=== PATIENT | female | born 1950 | race Caucasian/White ===

== ENCOUNTER 2022-04-20 14:59 | Emergency (ER) | payer MEDICARE, OTHER ==
[~2022-04-20] VITALS: Ht 165 cm; Wt 72.5 kg
[2022-04-20] MEDS ORDERED: LEVO88TA68 (15:13)
[2022-04-20 15:43] LABS: BASOPHILS % (AUTO) 0 % (0-10); EOSINOPHILS % (AUTO) 0 % (0-10); HEMATOCRIT 45 % (35-52); HEMOGLOBIN 14.8 g/dL (11.5-16.0); LYMPHOCYTES # (AUTO) 2.7 10^3/uL (1.0-4.0); LYMPHOCYTES % (AUTO) 35 % (12-44); MEAN CORPUSCULAR HEMOGLOBIN 33 pg (25-34); MEAN CORPUSCULAR HGB CONC 33 g/dL (32-36); MEAN CORPUSCULAR VOLUME 98 fL (80-99); MEAN PLATELET VOLUME 10.3 fL (9.0-12.2); MONOCYTES # (AUTO) 0.5 10^3/uL (0.0-1.0); MONOCYTES % (AUTO) 7 % (0-12); NEUTROPHILS # (AUTO) 4.4 10^3/uL (1.8-7.8); NEUTROPHILS % (AUTO) 57 % (42-75); PLATELET COUNT 303 10^3/uL (130-400); WHITE BLOOD COUNT 7.7 10^3/uL (4.3-11.0)
[2022-04-20 15:48] LABS: ALBUMIN 4.5 GM/DL (3.2-4.5); CHLORIDE 104 MMOL/L (98-107); POTASSIUM 3.3 MMOL/L (3.6-5.0); SODIUM 140 MMOL/L (135-145)
[2022-04-20 15:49] LABS: CALCIUM 9.9 MG/DL (8.5-10.1)
[2022-04-20 15:50] LABS: GLUCOSE 137 MG/DL (70-105); TOTAL PROTEIN 7.9 GM/DL (6.4-8.2)
[2022-04-20 15:51] LABS: CARBON DIOXIDE 21 MMOL/L (21-32)
[2022-04-20 15:52] LABS: BILIRUBIN,TOTAL 0.4 MG/DL (0.1-1.0)
--- NOTE | 2022-04-20 15:52 | ED General ---
General Chief Complaint: Cardiac/General Problems Stated Complaint: IRR HEART RATE Nursing Triage Note: PT PRESENTS TO ED VIA POV FROM HOME WITH COMPLAINTS OF PALPITATIONS X 2-3 WEEKS BUT REPORTS ITS WORSE TODAY. PT ALSO REPROTS SOA AND DIZZINESS. Source of Information: Patient Exam Limitations: No Limitations (SUAD DELAROSA MED STUDENT) History of Present Illness Date Seen by Provider: Apr 20, 2022 Time Seen by Provider: 15:39 Initial Comments Gladys Card is a 71 yo female who presents for heart palpitations. Pt has hx of Graves disease with thyroidectomy. Pt reports she has been experiencing heart palpitations for greater than one month. She states today in jewish she had palpitations, became dizzy and felt like she was going to pass out, so she came in to the ER. She reports rest normally helps with the palpitations, but this did not help today. She has associated cough and SOA. She denies CP, dysuria, N/V/D, headache, URI sxs or increased LE edema. She follows up for regular thyroid checks at [facility] and states the last one was within normal limits. She is well managed on 88mcg of levothyroxine. She reports no cardiac hx. She did have a stress test in 2007 at [facility] d/t increased stress while taking care of her sick mother. Her mother had hx of PVCs and sick sinus syndrome. Pt reports no hx of HTN and states her blood pressures are usually 140s/70s and heart rate around 70. Timing/Duration: Other (1 month) Associated Systoms: No Chest Pain; Cough; No Nausea/Vomiting; Shortness of Air (SUAD DELAROSA A MED STUDENT) Allergies and Home Medications Allergies Coded Allergies: No Known Drug Allergies (Unverified , 04/20/22) Patient Home Medication List Levothyroxine Sodium (Euthyrox) 88 Mcg Tablet, (Reported) Entered as Reported by: SHE CASANOVA on 04/20/22 2083 Last Action: New Order Review of Systems Review of Systems Constitutional: No chills, No fever EENTM: No blurred vision, No vision loss Respiratory: cough, short of breath Cardiovascular: No chest pain; palpitations Gastrointestinal: No abdominal pain, No constipation, No diarrhea, No nausea, No vomiting Genitourinary: No dysuria, No frequency Musculoskeletal: No back pain Skin: no symptoms reported Psychiatric/Neurological: No Symptoms Reported Hematologic/Lymphatic: No Symptoms Reported Immunological/Allergic: no symptoms reported (SUAD DELAROSA [employer] STUDENT) Past Vznpari-Qiutzd-Ijmzhw Hx Patient Social History Tobacco Use?: No Substance use?: No Alcohol Use?: No Pt feels they are or have been: No (SUAD DELAROSA) Past Medical History Surgery/Hospitalization HX: SX: THYROID ABLATION, L BREAST DUCT REMOVED. L KNEE, APPY PMH: HYPOTHYROIDISM (SAUD DELAROSA) Physical Exam Vital Signs Vital Signs - First Documented 04/20/22 15:04 Temp 37.6 Pulse 108 Resp 24 B/P (MAP) 187/80 (115) Pulse Ox 99 (AKIRA STANFORD MD) Vital Signs Capillary Refill : Less Than 3 Seconds (SUAD DELAROSA) Height, Weight, BMI Height: '" Weight: lbs. oz. kg; 26.00 BMI Method: (SUAD DELAROSA) Progress/Results/Core Measures Suspected Sepsis SIRS Temperature: Pulse: 108 Respiratory Rate: 24 Laboratory Tests 04/20/22 15:10: White Blood Count 7.7 Blood Pressure 187 /80 Mean: 115 Laboratory Tests 04/20/22 15:10: Creatinine 1.06, Platelet Count 303, Total Bilirubin 0.4 (SUAD DELAROSA STUDENT) Results/Orders Lab Results Laboratory Tests Test 04/20/22 15:10 Range/Units White Blood Count 7.7 4.3-11.0 10^3/uL Red Blood Count 4.55 3.80-5.11 10^6/uL Hemoglobin 14.8 11.5-16.0 g/dL Hematocrit 45 35-52 % Mean Corpuscular Volume 98 80-99 fL Mean Corpuscular Hemoglobin 33 25-34 pg Mean Corpuscular Hemoglobin Concent 33 32-36 g/dL Red Cell Distribution Width 13.0 10.0-14.5 % Platelet Count 303 130-400 10^3/uL Mean Platelet Volume 10.3 9.0-12.2 fL Immature Granulocyte % (Auto) 0 % Neutrophils (%) (Auto) 57 42-75 % Lymphocytes (%) (Auto) 35 12-44 % Monocytes (%) (Auto) 7 0-12 % Eosinophils (%) (Auto) 0 0-10 % Basophils (%) (Auto) 0 0-10 % Neutrophils # (Auto) 4.4 1.8-7.8 10^3/uL Lymphocytes # (Auto) 2.7 1.0-4.0 10^3/uL Monocytes # (Auto) 0.5 0.0-1.0 10^3/uL Eosinophils # (Auto) 0.0 0.0-0.3 10^3/uL Basophils # (Auto) 0.0 0.0-0.1 10^3/uL Immature Granulocyte # (Auto) 0.0 0.0-0.1 10^3/uL Sodium Level 140 135-145 MMOL/L Potassium Level 3.3 L 3.6-5.0 MMOL/L Chloride Level 104 98-107 MMOL/L Carbon Dioxide Level 21 21-32 MMOL/L Anion Gap 15 H 5-14 MMOL/L Blood Urea Nitrogen 14 7-18 MG/DL Creatinine 1.06 0.60-1.30 MG/DL Estimat Glomerular Filtration Rate 56 BUN/Creatinine Ratio 13 Glucose Level 137 H 70-105 MG/DL Calcium Level 9.9 8.5-10.1 MG/DL Corrected Calcium 9.5 8.5-10.1 MG/DL Magnesium Level 2.1 1.6-2.4 MG/DL Total Bilirubin 0.4 0.1-1.0 MG/DL Aspartate Amino Transf (AST/SGOT) 19 5-34 U/L Alanine Aminotransferase (ALT/SGPT) 15 0-55 U/L Alkaline Phosphatase 92 40-136 U/L Troponin I < 0.028 <0.028 NG/ML B-Type Natriuretic Peptide 23.4 <100.0 PG/ML Total Protein 7.9 6.4-8.2 GM/DL Albumin 4.5 3.2-4.5 GM/DL (AKIRA STANFORD MD) My Orders Orders - AKIRA STANFORD MD Ekg Tracing (04/20/22 15:03) Ed Iv/Invasive Line Start (04/20/22 15:16) Cbc With Automated Diff (04/20/22 15:16) Comprehensive Metabolic Panel (04/20/22 15:16) Magnesium (04/20/22 15:16) Chest 1 View, Ap/Pa Only (04/20/22 15:16) Troponin I Ralls (04/20/22 15:37) Bnp Sandeep (04/20/22 15:37) Ns Iv 1000 Ml (Sodium Chloride 0.9%) (04/20/22 16:15) (AKIRA STANFORD MD) Vital Signs/I&O 04/20/22 15:04 Temp 37.6 Pulse 108 Resp 24 B/P (MAP) 187/80 (115) Pulse Ox 99 (AKIRA STANFORD MD) Vital Signs/I&O Capillary Refill : Less Than 3 Seconds (SUAD DELAROSA MED STUDENT) Blood Pressure Mean: 115 Progress Note : Time: 16:57 Progress Note Pt currently in quadrigeminy upon arrival to ED. 1L IV fluids being given. CBC and CMP are unremarkable. Troponin, BNP and Magnesium are within normal limits. 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 SHe has been having them about a month and has not sought treatment until today. She states usually she can lay down and rest and they improve. Today they have not gotten better since jewish. No recent illnesses. no medication change (on same thyroid medication for years). No trauma or injuries. NO chest pain. she is a little SOB and states they make her feel like she needs to cough. TX - benign except for the PVC's. no LE edema. no cardia murmur. Abd benign. normal neuro. plan, hydration and follow up with cardiology. (AKIRA STANFORD MD) ECG Initial ECG Impression Date: Apr 20, 2022 Initial ECG Impression Time: 16:59 Initial ECG Rhythm: S.Tach, PVC (quadrigeminy) Initial ECG Intervals: Normal Comment Possible left atrial enlargement (SUAD DELAROSA MED STUDENT) Diagnostic Imaging Diagonstic Imaging: Xray Plain Films/CT/US/NM/MRI: chest Comments [facility]. [place], [place] NAME: GLADYS CARD MED REC#: [id number] PT STATUS: REG ER : 1950 PHYSICIAN: AKIRA STANFORD MD ADMIT DATE: 04/20/22/ER Draft Date of Exam:04/20/22 CHEST 1 VIEW, AP/PA ONLY INDICATION: chest pain, palpitations. TECHNIQUE: Single view chest 3:43 PM. CORRELATION STUDY: None FINDINGS: The heart size, mediastinal configuration and pulmonary vascularity are within normal limits. The lungs are clear with no consolidating infiltrate. There is no significant effusion or pneumothorax. IMPRESSION: 1. Negative appearing single view chest. Dictated on workstation # [id number] Dict: 04/20/22 1604 Trans: 04/20/22 1604 DO [id number] Interpreted by: GREG MARTIN DO Electronically signed by: (AKIRA STANFORD MD) Departure Impression Primary Impression: Ventricular quadrigeminy Disposition: 01 HOME, SELF-CARE Condition: Improved Departure-Patient Inst. Decision time for Depature: 17:07 (AKIRA STANFORD MD) Referrals: JR WEATHERS MD Patient Instructions: Palpitations Add. Discharge Instructions: PLease drink plenty of fluids to stay well hydrated. Being dehydrated can worsen PVC's. Continue your thyroid medications as prescribed. I would recommend you follow up with Dr Weathers for further cardiac evaluation - please call his office tomorrow for a follow up appointment this week. Return to the ER for any worsening palpitations, especially if you have chest pain, worsening Shortness of breath or any other emergent, concerning symptoms. Verification and Attestation of Medical Student E/M Service A medical student performed and documented this service in my presence. I reviewed and verified all information documented by the medical student and made modifications to such information, when appropriate. I personally performed the physical exam and medical decision making. Akira Stanford, Apr 20, 2022,17:10 (AKIRA STANFORD MD) SUAD DELAROSA MED STUDENT Apr 20, 2022 15:52 AKIRA STANFORD MD Apr 20, 2022 17:13
[2022-04-20 15:53] LABS: ALKALINE PHOSPHATASE 92 U/L (40-136)
[2022-04-20 15:54] LABS: CREATININE SERUM 1.06 MG/DL (0.60-1.30); GFR ESTIMATED 56
[2022-04-20 15:55] LABS: BUN/CREATININE RATIO 13
[2022-04-20 15:56] LABS: MAGNESIUM 2.1 MG/DL (1.6-2.4)
[2022-04-20 15:57] LABS: ALANINE AMINOTRANSFERASE 15 U/L (0-55)
--- NOTE | 2022-04-20 16:05 | Diagnostic Imaging Report ---
INDICATION: chest pain, palpitations. TECHNIQUE: Single view chest 3:43 PM. CORRELATION STUDY: None FINDINGS: The heart size, mediastinal configuration and pulmonary vascularity are within normal limits. The lungs are clear with no consolidating infiltrate. There is no significant effusion or pneumothorax. IMPRESSION: 1. Negative appearing single view chest. Dictated by: Dictated on workstation # [id number]
[2022-04-20] MEDS ORDERED: NS IV 1000 ML 1,000 ML IV SCH (16:15)
[2022-04-20 17:23] VITALS: BP 162/74
== END 2022-04-20 17:23 | disposition home or self-care (01) ==
LOC: ER 15:04
DX: I49.3 Ventricular premature depolarization (principal); Z28.310 Unvaccinated for COVID-19
CPT/HCPCS: 36415; 71045; 80053; 83735; 83880; 84484; 85025; 93005

== ENCOUNTER 2022-04-23 15:51 | Emergency (ER) | payer SELFPAY ==
[~2022-04-23] VITALS: Ht 165 cm; Wt 71.0 kg
[~2022-04-23 15:51] MED LIST: LEVO88TA68
--- NOTE | 2022-04-23 16:15 | ED Cardiac General ---
History of Present Illness General Chief Complaint: Chest Pain Stated Complaint: CHEST PAIN Nursing Triage Note: ARRIVED VIA EMS FROM HOME WITH PALPITATIONS AND X2 EPISODES OF RIGHT JAW PAIN. HAS BEEN SEEN HERE RECENTLY FOR THE PALPITATIONS. PT IS CLAMMY. PT RECEIVED X4 BABY ASA AND X1 NITRO THAT DROPPED HER BP. PT DENIES PAIN AT THIS TIME. Source: patient Exam Limitations: no limitations (AKIRA STANFORD MD) History of Present Illness Date Seen by Provider: Apr 23, 2022 Time Seen by Provider: 16:00 Initial Comments Patient is a 71-year-old female history of thyroid disease who presents to the emergency room by ambulance chief complaint of palpitations, right-sided jaw pain, diaphoresis/clamminess. Patient was seen by myself a few days ago here in the ER for similar symptoms of palpitations. She was in a quadrigeminy rhythm at the time. She followed up with Dr. Weathers on Thursday and was placed on metoprolol 25. She has had 2 doses and states today she was actually feeling fairly good. She got up to start doing some housework. She had abrupt onset of palpitations again and as she was experiencing the palpitations had 2 episodes of very intense sharp right-sided jaw pain. She states the episodes were brief. She was not nauseated or short of breath when she had the pain. She did experience some sweating. She has no known coronary artery disease. Dr. Weathers is setting her up for stress test as an outpatient. She denies recent illness. No fevers, chills, productive cough. No swelling in her legs. No muscular pains. She has no chest pain at the time of presentation. She reports that EMS did give her a sublingual nitro in route however she was not having chest pain it was for the palpitations. She also received 324 mg of aspirin She is a non-smoker. No hypertension. Has a strong family history of vascular disease in multiple family members. All other review of systems reviewed and negative except as stated. 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 ASA po CORE MAKER HELPER: Yes (324MG) Associated Systoms: Diaphoresis, Weakness (AKIRA STANFORD MD) Allergies and Home Medications Allergies Coded Allergies: No Known Drug Allergies (Unverified , 04/20/22) Patient Home Medication List Home Medication List Reviewed: Yes (AKIRA STANFORD MD) Levothyroxine Sodium (Euthyrox) 88 Mcg Tablet, (Reported) Entered as Reported by: SHE CASANOVA on 04/20/22 4403 Review of Systems Review of Systems Constitutional: see HPI EENTM: No Symptoms Reported Respiratory: No Symptoms Reported Cardiovascular: Palpitations Gastrointestinal: No Symptoms Reported Genitourinary: No Symptoms Reported Musculoskeletal: no symptoms reported Skin: no symptoms reported Psychiatric/Neurological: No Symptoms Reported (AKIRA STANFORD MD) All Other Systems Reviewed Negative Unless Noted: Yes (AKIRA STANFORD MD) Past Oggnekt-Qhrcxi-Ohjpyt Hx Patient Social History Tobacco Use?: No Substance use?: No Alcohol Use?: No (AKIRA STANFORD MD) Past Medical History Surgery/Hospitalization HX: SX: THYROID ABLATION, L BREAST DUCT REMOVED. L KNEE, APPY PMH: HYPOTHYROIDISM (AKIRA STANFORD MD) Physical Exam Vital Signs Vital Signs - First Documented 04/23/22 15:51 Temp 36.9 Pulse 92 Resp 16 B/P (MAP) 148/69 (95) Pulse Ox 99 O2 Delivery Room Air (FILEMON,DE K DO) Vital Signs Capillary Refill : Less Than 3 Seconds (AKIRA STANFORD MD) Height, Weight, BMI Height: '" Weight: lbs. oz. 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 Norm as Tested, Other (Anxious) Skin: Normal Color, Warm/Dry (AKIRA STANFORD MD) Progress/Results/Core Measures Results/Orders Lab Results Laboratory Tests Test 04/23/22 15:55 04/23/22 19:30 Range/Units White Blood Count 7.9 4.3-11.0 10^3/uL Red Blood Count 4.42 3.80-5.11 10^6/uL Hemoglobin 14.2 11.5-16.0 g/dL Hematocrit 42 35-52 % Mean Corpuscular Volume 96 80-99 fL Mean Corpuscular Hemoglobin 32 25-34 pg Mean Corpuscular Hemoglobin Concent 34 32-36 g/dL Red Cell Distribution Width 13.0 10.0-14.5 % Platelet Count 284 130-400 10^3/uL Mean Platelet Volume 10.9 9.0-12.2 fL Immature Granulocyte % (Auto) 0 % Neutrophils (%) (Auto) 66 42-75 % Lymphocytes (%) (Auto) 26 12-44 % Monocytes (%) (Auto) 7 0-12 % Eosinophils (%) (Auto) 0 0-10 % Basophils (%) (Auto) 0 0-10 % Neutrophils # (Auto) 5.2 1.8-7.8 10^3/uL Lymphocytes # (Auto) 2.0 1.0-4.0 10^3/uL Monocytes # (Auto) 0.6 0.0-1.0 10^3/uL Eosinophils # (Auto) 0.0 0.0-0.3 10^3/uL Basophils # (Auto) 0.0 0.0-0.1 10^3/uL Immature Granulocyte # (Auto) 0.0 0.0-0.1 10^3/uL Sodium Level 143 135-145 MMOL/L Potassium Level 4.2 3.6-5.0 MMOL/L Chloride Level 106 98-107 MMOL/L Carbon Dioxide Level 21 21-32 MMOL/L Anion Gap 16 H 5-14 MMOL/L Blood Urea Nitrogen 16 7-18 MG/DL Creatinine 0.96 0.60-1.30 MG/DL Estimat Glomerular Filtration Rate 63 BUN/Creatinine Ratio 17 Glucose Level 109 H 70-105 MG/DL Calcium Level 10.3 H 8.5-10.1 MG/DL Magnesium Level 2.0 1.6-2.4 MG/DL Troponin I < 0.028 < 0.028 <0.028 NG/ML (DE NIÑO DO) Vital Signs/I&O 04/23/22 15:51 Temp 36.9 Pulse 92 Resp 16 B/P (MAP) 148/69 (95) Pulse Ox 99 O2 Delivery Room Air (DE NIÑO DO) Blood Pressure Mean: 95 Progress Progress Note #1: Time: 17:09 Progress Note Discussed with Dr Izaguirre, [facility] 4hr troponin and if negative, home with office follow up tomorrow. Progress Note #2: Time: 17:41 Progress Note Care passed to Dr Niño at 6pm with repeat troponin at 1930 (AKIRA STANFORD MD) Progress Note : Progress Note 1800--ASSUMED CARE FROM DR. STANFORD, PENDING REPEAT TROPONIN AT 1930. PT IS CURRENTLY NOT HAVING ANY SYMPTOMS OTHER THAN SHE IS AWARE WHEN SHE IS HAVING PVC'S. PT IS ASYMTOMATIC FOR REMAINDER OF ER STAY PT FEELS COMFORTABLE GOING HOME PT IS ALREADY IN PROCESS OF GETTING A STRESS TEST SCHEDULED WITH DR. WEATHERS--WAITING FOR INSURANCE APPROVAL (DE NIÑO DO) Initial ECG Impression Date: Apr 23, 2022 Initial ECG Impression Time: 16:00 Initial ECG Rate: 75 Initial ECG Rhythm: Normal Sinus Initial ECG Intervals: Normal Initial ECG Impression: Normal (AKIRA STANFORD MD) Departure Impression Primary Impression: Ventricular quadrigeminy Additional Impression: PVCs (premature ventricular contractions) Disposition: 01 HOME, SELF-CARE Condition: Stable Departure-Patient Inst. Decision time for Depature: 20:25 (DE NIÑO DO) Referrals: JR WEATHERS MD Patient Instructions: Ventricular Premature Beats Add. Discharge Instructions: CONTINUE YOUR REGULAR MEDICATIONS PRESCRIBED FOLLOW UP WITH DR WEATHERS TO ARRANGE FOR STRESS TEST. RETURN TO ER IF PROBLEMS All discharge instructions reviewed with patient and/or family. Voiced understanding. AKIRA STANFORD MD Apr 23, 2022 16:15 DE NIÑO DO Apr 23, 2022 18:04
[2022-04-23 16:16] LABS: BASOPHILS % (AUTO) 0 % (0-10); EOSINOPHILS % (AUTO) 0 % (0-10); HEMATOCRIT 42 % (35-52); HEMOGLOBIN 14.2 g/dL (11.5-16.0); LYMPHOCYTES % (AUTO) 26 % (12-44); MEAN CORPUSCULAR HEMOGLOBIN 32 pg (25-34); MEAN CORPUSCULAR HGB CONC 34 g/dL (32-36); MEAN CORPUSCULAR VOLUME 96 fL (80-99); MEAN PLATELET VOLUME 10.9 fL (9.0-12.2); MONOCYTES # (AUTO) 0.6 10^3/uL (0.0-1.0); MONOCYTES % (AUTO) 7 % (0-12); NEUTROPHILS # (AUTO) 5.2 10^3/uL (1.8-7.8); NEUTROPHILS % (AUTO) 66 % (42-75); PLATELET COUNT 284 10^3/uL (130-400); WHITE BLOOD COUNT 7.9 10^3/uL (4.3-11.0)
[2022-04-23 16:23] LABS: CHLORIDE 106 MMOL/L (98-107); POTASSIUM 4.2 MMOL/L (3.6-5.0); SODIUM 143 MMOL/L (135-145)
[2022-04-23 16:24] LABS: CALCIUM 10.3 MG/DL (8.5-10.1); GLUCOSE 109 MG/DL (70-105)
[2022-04-23 16:26] LABS: CARBON DIOXIDE 21 MMOL/L (21-32)
[2022-04-23 16:28] LABS: CREATININE SERUM 0.96 MG/DL (0.60-1.30); GFR ESTIMATED 63
[2022-04-23 16:29] LABS: BUN/CREATININE RATIO 17
[2022-04-23 20:27] VITALS: BP 138/59
== END 2022-04-23 20:39 | disposition home or self-care (01) ==
LOC: EDUNIT# 15:51 → ER 15:52
DX: I49.3 Ventricular premature depolarization (principal); Z28.310 Unvaccinated for COVID-19
CPT/HCPCS: 36415; 80048; 83735; 84484; 85025; 93005